=== PATIENT | female | born 1980 | race Caucasian/White ===

== ENCOUNTER 2016-12-05 11:41 | Emergency (ER) | payer OTHER ==
[~2016-12-05] VITALS: Ht 172.7 cm; Wt 139.7 kg
--- NOTE | ~2016-12-05 | CT71 ---
[facility] A Service [facility] RADIOLOGY TEXT RESULTS PATIENT: JON MON LOCATION: GRACE : 78 UNIT #: [id number] AGE: [address]: Larry Zavala MD SEX: F ORDER DR: [id number] [facility] [address] [facility]. [place], [place] [address] [id number] E MR#: [id number] Acc #: [id number] NAME: JON MON : 1980 SEX: F STUDY DATE/TIME: 12/05/2016 14:28 UNIT: [facility] ROOM: STUDY DESCRIPTION: CT Head Wo Contrast Attending Physician: Larry Zavala M.D. Ordering Physician: Larry [id number] Harjinder Zavala Primary Care Physician: Primary Care Physician No MEDICAL IMAGING REPORT This report is preliminary unless electronic signature is present EXAM CT scan of the head without contrast INDICATIONS Seizure, head injury, neck pain, headache since seizure this morning. TECHNIQUE Axial noncontrast images were obtained from the skull base to the vertex. This CT exam was performed with one or more of the following radiation dose reduction techniques: Automatic exposure control, adjustment of mA and/or kV according to patient size, and iterative reconstruction. FINDINGS Ventricular size and configuration are normal. There is no evidence of acute infarct or hemorrhage. There are no extraaxial fluid collections. No mass lesion or mass effect is seen. There are no skull fractures. IMPRESSION Normal noncontrast head CT. Dictated by... Micha Caldwell M.D. THIS IS AN ELECTRONICALLY VERIFIED REPORT Micha Caldwell M.D. at 12/06/2016 7:06 AM FEL/psc TD: 12/05/2016 16:41 JOB #: [id number] MEDICAL IMAGING REPORT [facility] A Service [facility] RADIOLOGY TEXT RESULTS PATIENT: JON MON LOCATION: [facility] : 79 UNIT #: [id number] AGE: [address]: Larry Zavala MD SEX: F ORDER DR: Page 1 of 1 COPY
--- NOTE | ~2016-12-05 | CT52 ---
[facility] A Service [facility] RADIOLOGY TEXT RESULTS PATIENT: JON MON LOCATION: [facility] : [birth year] UNIT #: [id number] AGE: [address]: Larry Zavala MD SEX: F ORDER DR: [id number] [facility] [address] [facility]. [place], [place] [address] [id number] E MR#: [id number] Acc #: [id number] NAME: JON MON : 1980 SEX: F STUDY DATE/TIME: 12/05/2016 14:31 UNIT: [facility] ROOM: STUDY DESCRIPTION: CT Cervical Spine Wo Cont Attending Physician: Larry Zavala M.D. Ordering Physician: Larry [id number] Harjinder Zavala Primary Care Physician: Primary Care Physician No MEDICAL IMAGING REPORT This report is preliminary unless electronic signature is present EXAM Cervical spine CT scan without contrast. INDICATIONS Seizure this morning with trauma to head, and neck pain. TECHNIQUE Axial 2 mm images were obtained through the cervical spine then sagittal and coronal reconstructions were generated. This CT exam was performed with one or more of the following radiation dose reduction techniques: Automatic exposure control, adjustment of mA and/or kV according to patient size, and iterative reconstruction. FINDINGS The vertebral bodies and disc spaces have normal alignment. There is minimal posterior spurring at C5-6. There is no fracture or subluxation. Soft tissues are normal. IMPRESSION Minimal degenerative changes at C5-6, otherwise normal. Dictated by... Micha Caldwell M.D. THIS IS AN ELECTRONICALLY VERIFIED REPORT Micha Caldwell M.D. at 12/06/2016 7:06 AM FEL/psc TD: 12/05/2016 16:44 JOB #: [id number] MEDICAL IMAGING REPORT [facility] A Service [facility] RADIOLOGY TEXT RESULTS PATIENT: JON MON LOCATION: [facility] : 78 UNIT #: [id number] AGE: [address]: Larry Zavala MD SEX: F ORDER DR: Page 1 of 1 COPY
[2016-12-05 12:53] LABS: BASOPHIL# 0.1 X10e3 (0-0.3); BASOPHIL% 0.9 % (0-2.5); EOSINOPHIL# 0.6 X10e3 (0-0.7); EOSINOPHIL% 7.1 % (0.0-7.0); HEMATOCRIT 39.2 % (35.0-45.0); HEMOGLOBIN 12.8 gm/dL (12.0-16.0); LYMPHOCYTE# 2.3 X10e3 (1.0-3.5); LYMPHOCYTE% 28.1 % (17.0-45.0); MEAN CELL VOLUME 89.9 FL (83-96); MEAN CORPUSCULAR HEMOGLOBIN 29.4 PG (28-34); MEAN CORPUSCULAR HGB CONC 32.7 g/dL (30-36); MEAN PLATELET VOLUME 7.7 FL (6.5-11.5); MONOCYTE# 0.4 X10e3 (0-1.0); MONOCYTE% 5.3 % (3.0-12.0); NEUTROPHIL# 4.8 X10e3 (1.5-7.1); NEUTROPHIL% 58.6 % (40-75); PLATELET COUNT 265 X10e3 (140-420); RED BLOOD COUNT 4.36 X10e (3.90-5.30); RED CELL DISTRIBUTION WIDTH 15.2 % (11.0-15.5); WHITE BLOOD COUNT 8.1 X10e3 (4.0-10.5)
[2016-12-05 12:55] LABS: DIFF IND NO
[2016-12-05 13:21] LABS: ALBUMIN SERUM 3.9 g/dL (3.5-5.0); BILIRUBIN, DIRECT 0.1 mg/dL (0.0-0.2); BILIRUBIN,INDIRECT 0.4 mg/dL (0.0-0.9); BILIRUBIN,TOTAL 0.5 mg/dL (0.2-2.0); BUN/CREATININE RATIO 15.71; CALCIUM SERUM 9.2 mg/dL (8.4-10.2); CREATININE SERUM 0.7 mg/dL (0.6-1.4); GLOM FILT RATE Estimated 110.7 mL/min (>60); PROTEIN TOTAL SERUM 7.2 g/dL (6.0-8.3); TEGRETOL (CARBAMAZEPINE) 5.5 ug/mL (4.0-12.0)
[2016-12-05 13:59] LABS: URINE SOURCE CLEAN CATCH
[2016-12-05 14:04] LABS: URINE APPEARANCE CLEAR; URINE BILIRUBIN NEG (NEG); URINE BLOOD NEG (NEG); URINE COLOR YELLOW; URINE GLUCOSE NEG (NEG); URINE KETONE NEG (NEG); URINE LEUKOCYTE ESTERASE NEG (NEG); URINE NITRATE NEG (NEG); URINE PROTEIN NEG (NEG); URINE SPECIFIC GRAVITY 1.009 (1.003-1.035); URINE UROBILINOGEN 0.2 MG/DL (NEG)
[2016-12-05 14:10] LABS: CULTURE INDICATED? NO
[2016-12-05 14:14] LABS: AMPHETAMINE NEG (NEG); BARBITURATES NEG (NEG); BENZODIAZEPINES NEG (NEG); COCAINE NEG (NEG); MARIJUANA NEG (NEG); OPIATES NEG (NEG); TRICYCLIC ANTIDEPRESSANTS NEG (NEG); U METHADONE NEG (NEG)
== END 2016-12-05 16:30 | disposition home or self-care (01) ==
LOC: CED 11:41
PROVIDERS: Emergency Medicine
DX: R56.9 Unspecified convulsions (principal); Z88.5 Allergy status to narcotic agent; Z88.8 Allergy status to other drugs, medicaments and biological substances
CPT/HCPCS: 36415; 70450; 72125; 80048; 80076; 80156; 80307; 81003; 82947; 85025; 96365; 99285; J2060; Q2009

== ENCOUNTER 2016-12-18 15:02 | Inpatient (IN) | payer OTHER ==
[~2016-12-18] VITALS: Ht 172.7 cm; Wt 139.7 kg
--- NOTE | ~2016-12-18 | PN ---
Unit #: [id number] #: [id number] Patient: RENEE MON [id number] [facility] [address] [place] [address] [id number] I MR#: [id number] NAME: RENEE MON ROOM: P251 Age: 36 Sex: F Admission Date: 12/18/2016 : 1980 Attending Physician: Ash Cagle M.D. Admitting Physician: Ash Cagle M.D. Primary Care Physician: Primary Care Physician Kallie PIZANO PROGRESS NOTES DATE 12/24/2016 DISCUSSION Renee continues to complain of ear pain, although it turns out that the object in her ear yesterday was toilet paper that she had deliberately inserted there. She appears quite somatically focused and mildly disheveled this morning. Her mood is depressed with a congruent affect. She is alert and fully oriented with no active psychosis but ongoing suicidal ideation. ASSESSMENT Posttraumatic stress disorder, chronic. PLAN Continue current treatment plan. Dictated by... Gokul Wen/beena TD: 12/25/2016 08:39 JOB #: [id number] [facility] PROGRESS NOTES Page 1 of 1 X Ash Cagle MD X PROGRESS NOTE
--- NOTE | ~2016-12-18 | PN ---
Unit #: [id number] #: [id number] Patient: RENEE MON [id number] [facility] [address] [place] [address] [id number] I MR#: [id number] NAME: RENEE MON ROOM: P251 Age: 36 Sex: F Admission Date: 12/18/2016 : 1980 Attending Physician: Ash Cagle M.D. Admitting Physician: Ash Cagle M.D. Primary Care Physician: Primary Care Physician Kallie PIZANO PROGRESS NOTES DATE 12/20/2016 DISCUSSION Renee has tolerated the change of medication from Effexor to Cymbalta with no significant adverse side effects. She continues to be dysphoric and downcast in her mood and occasionally tearful. She has had a couple episodes of seizure-like activity. She is alert and fully oriented with no active psychosis and ongoing suicidal ideation. ASSESSMENT Posttraumatic stress disorder, chronic. PLAN We will check a Tegretol level and continue with current medications and precautions. Dictated by... Gokul Wen/beena TD: 12/25/2016 11:43 JOB #: [id number] [facility] PROGRESS NOTES Page 1 of 1 X Ash Cagle MD PROGRESS NOTE
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
--- NOTE | ~2016-12-18 | HP ---
Unit #: [id number] #: [id number] Patient: JON MON [id number] [place] [address] [id number] I MR#: [id number] NAME: JON MON ROOM: P255 Age: 36 Sex: F Admission Date: 12/18/2016 : 1980 Attending Physician: Ash Cagle M.D. Admitting Physician: Ash Cagle M.D. Primary Care Physician: Primary Care Physician No HISTORY AND PHYSICAL HISTORY OF PRESENT ILLNESS Patient is a 36-year-old female admitted to [address] [place] [address] on 12/18/2016 for suicidal ideations with an attempt to kill herself by slitting her wrist. PAST MEDICAL HISTORY 1. AFib. 2. Seizure disorder. 3. Restless leg. 4. Hypothyroidism. 5. Right ankle pain and swelling. 6. Migraines. PAST SURGICAL HISTORY 1. Hysterectomy. 2. Heart ablation. 3. Appendectomy. 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 She lives with her and her children. She denies alcohol, tobacco and drug use. FAMILY MEDICAL HISTORY Noncontributory. ALLERGIES Scopolamine, Dilaudid, Zofran, Toradol and latex. CURRENT MEDICATIONS Please see list of home medications per chart. REVIEW OF SYSTEMS CONSTITUTIONAL: No fever or chills. HEENT: Denies any sore throat, ear pain or runny nose. CARDIOVASCULAR: Denies chest pain, irregular heart rhythm or palpitations. CHEST: Denies shortness of breath or cough. No hemoptysis. GASTROINTESTINAL: Denies nausea, vomiting, diarrhea or chronic constipation. ENDOCRINE: Denies history of increased thirst or urination. No recent significant weight loss or gain. GENITOURINARY: She complains of vaginal itching and discharge. SKIN: Denies any rashes. HEMATOLOGIC: Denies history of increased bleeding or bruising. MUSCULOSKELETAL: She complains of right ankle pain. Unit #: [id number] #: [id number] Patient: JON MON NEUROLOGIC: Denies problems with vision or speech. No frequent, severe headaches. No numbness, tingling or weakness in any extremities. Denies loss of bladder or bowel control. PHYSICAL EXAM GENERAL: She is obese, awake, alert and oriented in no acute distress. VITAL SIGNS: Temperature 98.9, heart rate 91, respiration 20, blood pressure 129/89. HEIGHT: 5 foot 8. WEIGHT: 308 pounds. SKIN: Warm and dry without rash or lesion. HEENT: Normocephalic. TMs not viewed. Oral and nasal passages clear. Conjunctivae clear. PERRLA. EOMs intact. NECK: Supple without lymphadenopathy or thyromegaly. HEART: Regular rate and rhythm without murmur. LUNGS: Clear. ABDOMEN: Soft, nontender. : Not done. MUSCULOSKELETAL: She has some mild right ankle swelling with tenderness to palpation and decrease range of motion. NEUROLOGICAL: Grossly within normal limits. Cranial Nerves: II: Visual nguyen are intact. III, IV AND : Extraocular movements are intact. Pupils are equal, round and reactive to light. V: Facial sensation is grossly normal. VII: Facial movements and expression are normal. VIII: Auditory acuity grossly intact. IX, X: Uvula is midline. Phonation is normal. XI: Patient shrugs shoulders and turns head normally. XII: Tongue protrudes in the midline. Sensory and Motor Function: Sensory and motor sensation is grossly normal. Motor: moves all extremities well. IMPRESSION 1. Psychiatric admission. 2. Atrial fibrillation. 3. Seizure disorder. 4. Restless leg syndrome. 5. Hypothyroidism. 6. Right ankle pain and swelling. 7. Migraines. RECOMMENDATIONS Psychiatric per psychiatrist. MEDICAL: No contraindication to participate in facility activities. MEDICAL PROGNOSIS Fair. MEDICAL CONDITION Stable. Dictated by... Mitali Colmenares A.P.R.N. Unit #: [id number] #: [id number] Patient: JON MON LOVE/tl TD: 12/20/2016 02:31 JOB #: [id number] HISTORY AND PHYSICAL Page 1 of 1 X MITALI COLMENARES APRN HISTORY AND PHYSICAL
--- NOTE | ~2016-12-18 | PN ---
Unit #: [id number] #: [id number] Patient: RENEE MON [id number] [facility] [address] [place] [address] [id number] I MR#: [id number] NAME: RENEE MON ROOM: [facility] Age: 36 Sex: F Admission Date: 12/18/2016 : 1980 Attending Physician: Ash Cagle M.D. Admitting Physician: Ash Cagle M.D. Primary Care Physician: Primary Care Physician Kallie SOTELO NOTES DATE 12/23/2016 DISCUSSION Renee had another seizure-like episode last night, which was apparently not witnessed by staff as the patient had moved to a corner of her room where she could not be observed on the video monitoring system. She complains of ongoing depression this morning with a congruent affect. She is alert and fully oriented. Her memory and concentration are fair. Her thought processes are illogical with vague auditory hallucinations and ongoing suicidal ideation. ASSESSMENT PTSD, borderline personality traits. PLAN We will check a Tegretol level and CMP in the morning and continue video monitoring and introduction of current medications. Dictated by... Gokul Wen/galdino TD: 12/24/2016 07:25 JOB #: [id number] [facility] PROGRESS NOTES Page 1 of 1 X Ash Cagle MD PROGRESS NOTE
--- NOTE | ~2016-12-18 | PN ---
Unit #: [id number] #: [id number] Patient: RENEE MON [id number] [facility] [address] [place] [address] [id number] I MR#: [id number] NAME: RENEE MON ROOM: P251 Age: 36 Sex: F Admission Date: 12/18/2016 : 1980 Attending Physician: Ash Cagle M.D. Admitting Physician: Ash Cagle M.D. Primary Care Physician: Primary Care Physician Kallie PIZANO PROGRESS NOTES DATE 12/21/2016 DISCUSSION Renee continues to complain of some sleepiness and has ongoing seizure-like activity, some of which seems somewhat "gamey" in nature. She continues to be depressed with a congruent affect. She is alert and fully oriented with no active psychosis. She does continue to report suicidal ideation. ASSESSMENT PTSD, chronic. PLAN We will change schedule of Geodon to avoid sedation and check laboratory studies. Will also continue with medical interventions as appropriate. Dictated by... Gokul Wen/laura TD: 12/25/2016 17:23 JOB #: [id number] [facility] PROGRESS NOTES Page 1 of 1 X Ash Cagle MD X PROGRESS NOTE
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
--- NOTE | ~2016-12-18 | PN ---
Unit #: [id number] #: [id number] Patient: RENEE MON [id number] [facility] [address] [place] [address] [id number] I MR#: [id number] NAME: RENEE MON ROOM: P251 Age: 36 Sex: F Admission Date: 12/18/2016 : 1980 Attending Physician: Ash Cagle M.D. Admitting Physician: Ash Cagle M.D. Primary Care Physician: Primary Care Physician Kallie PIZANO PROGRESS NOTES DATE 12/28/2016 DISCUSSION Renee continues to have occasional episodes of pseudoseizure-like activity, crying spells and anxiety. She is alert and fully oriented. Memory and concentration are fair. She continues to remain on suicidal ideation. She is participating in groups and activities. ASSESSMENT PTSD, chronic. PLAN Continue current treatment plan. Dictated by... Gokul Wen/dillon TD: 01/05/2017 15:16 JOB #: [id number] [facility] PROGRESS NOTES Page 1 of 1 X Ash Cagel MD X PROGRESS NOTE
--- NOTE | ~2016-12-18 | CO ---
Unit #: [id number] #: [id number] Patient: RENEE MON [id number] [place] [address] [id number] I MR#: [id number] NAME: RENEE MON ROOM: P251 Age: 36 Sex: F Admission Date: 12/18/2016 : 1980 Attending Physician: Ash Cagle M.D. Primary Care Physician: Primary Care Physician No Consultation Date: 12/22/2016 CONSULTATION REPORT SUBJECTIVE Renee is a 36-year-old, who has complained of left ear pain since her admission. After speaking with nursing staff, she had been given a set of soft foam ear plugs that she had brought in. She only has one soft foam ear plugs at the bathroom sink at this time. OBJECTIVE GENERAL: Alert, obese, no apparent distress. VITAL SIGNS: Blood pressure 120/70, heart rate 80, respirations 16, temperature 98.6. HEENT: Normocephalic. Left ear canal with yellow foreign body. Right ear canal is clear and TM is intact. With a pair of forceps, I was able to easily remove a yellow foam ear plug from her left ear canal. TM is intact. ASSESSMENT Occluded left ear canal with earplug. PLAN This was reported to nursing medical supervisor in the hopes that we will not be giving these out to patients in the future. No Rx is needed in this case. Dictated by... Susanne Agudelo P.A.-C. for Gokul Azevedo/eliud TD: 12/26/2016 03:29 JOB #: [id number] CONSULTATION REPORT Page 1 of 1 X Susanne Agudelo CONSULTATION REPORT
--- NOTE | ~2016-12-18 | CO ---
Unit #: [id number] #: [id number] Patient: JON MON [id number] [facility] [address] [place] [address] [id number] I MR#: [id number] NAME: JON MON ROOM: [facility] Age: 36 Sex: F Admission Date: 12/18/2016 : 1980 Attending Physician: Ash Cagle M.D. Primary Care Physician: Primary Care Physician No Consultation Date: 12/19/2016 CONSULTATION REPORT Ordering provider is Dr. Cagle. REASON FOR CONSULTATION Right ankle pain and yeast infection. SUBJECTIVE The patient reports that she fractured her right ankle in August. She is following up with Orthopedics, but she is supposed to be wearing a brace. In the meantime, she needs an order to wear this brace while she is in the hospital. She has still been getting physical therapy twice daily. She reports swelling and tenderness. She also reports that she has been having vaginal itching and dysuria for about 3 days. She used one day of Monistat at home, but did not finish the course due to coming to the hospital. OBJECTIVE Vaginal examination was deferred at this time. Her right ankle does appear to be swollen and tender to palpate. She does report pain with range of motion as well. ASSESSMENT 1. Right ankle fracture. 2. Yeast infection. PLAN Plan is to prescribe Monistat 7 and have her wear her brace while she is up walking. Dictated by... Carl Mcbride/eliud TD: 12/20/2016 17:18 JOB #: [id number] Unit #: [id number] #: [id number] Patient: JON MON CONSULTATION REPORT Page 1 of 1 X AURA HAYS APRN CONSULTATION REPORT
--- NOTE | ~2016-12-18 | CO ---
Unit #: [id number] #: [id number] Patient: JON MON [id number] [place] [address] [id number] I MR#: [id number] NAME: JON MON ROOM: [facility] Age: 36 Sex: F Admission Date: 12/18/2016 : 1980 Attending Physician: Ash Cagle M.D. Consultation Date: 12/20/2016 CONSULTATION REPORT REASON FOR CONSULTATION UTI. SUBJECTIVE The patient was seen on 12/19/2016 and did complain of dysuria. However, she believes it was related to yeast infection that she was having symptoms of that as well. She had denied any abdominal or back pain. OBJECTIVE Urinalysis shows 2+ leukocyte esterase and bacteria present in her urine. ASSESSMENT Urinary tract infection. PLAN Because the patient did have symptoms of dysuria, we will go ahead and treat with Macrobid and get a urine culture. Dictated by... Carl Mcbride/eliud TD: 12/21/2016 13:06 JOB #: [id number] CONSULTATION REPORT Page 1 of 1 X AURA HAYS APRN CONSULTATION REPORT
--- NOTE | ~2016-12-18 | PN ---
Unit #: [id number] #: [id number] Patient: RENEE MON [id number] [facility] [address] [place] [address] [id number] I MR#: [id number] NAME: RENEE MON ROOM: P251 Age: 36 Sex: F Admission Date: 12/18/2016 : 1980 Attending Physician: Ash Cagle M.D. Admitting Physician: Ash Cagle M.D. Primary Care Physician: Primary Care Physician Kallie PIZANO PROGRESS NOTES DATE 12/25/2016 DISCUSSION Renee reports that she is still having suicidal thoughts but did start to feel better yesterday, she is a little worse today and reports "my tremors are so bad" even though no tremors in her extremities are notable during my examination. She claims that the tremors lead to a recent fall which she felt embarrassed about. She also complains of "spots in front of my eyes," and other physical complaints. She is alert and fully oriented with fair memory and concentration and her thought processes are logical but highly somatically focused. She continues to report suicidal ideation. ASSESSMENT PTSD, chronic. PLAN We will continue current treatment plan. Dictated by... Gokul Wen/galdino TD: 12/27/2016 09:05 JOB #: [id number] [facility] PROGRESS NOTES Page 1 of 1 X Ash Cagle MD X PROGRESS NOTE
--- NOTE | ~2016-12-18 | PN ---
Unit #: [id number] #: [id number] Patient: RENEE MON [id number] [facility] [address] [place] [address] [id number] MR#: [id number] NAME: RENEE MON ROOM: P251 Age: 36 Sex: F Admission Date: 12/18/2016 : 1980 Attending Physician: Ash Cagle M.D. Admitting Physician: Ash Cagle M.D. Primary Care Physician: Primary Care Physician Kallie PIZANO PROGRESS NOTES DATE 12/27/2016 DISCUSSION Renee has developed several "side effects" that she complains of including a non-visible tremor and "spots in my eyes" which do not appear related to her medication. She also has a reddish rash across her chest and her underarm, although there is no petechia or raised areas and this appears to be a dermatitis. 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 Her mood is depressed with a congruent affect. She is alert and fully oriented with no active psychosis but ongoing suicidal ideation with a plan to cut her wrist. ASSESSMENT PTSD, chronic. PLAN At the patient's request, I am going to discontinue Cymbalta and will substitute Fetzima beginning at 20 mg daily. She will continue on her current precaution levels. The patient is an active participant in psychotherapy groups and activities and she was encouraged to continue to do so. Dictated by... Gokul Wen/laura TD: 12/28/2016 22:58 JOB #: [id number] Unit #: [id number] #: [id number] Patient: RENEE MON PROGRESS NOTES Page 1 of 1 X Ash Cagle MD X PROGRESS NOTE
--- NOTE | ~2016-12-18 | PN ---
Unit #: [id number] #: [id number] Patient: RENEE MON [id number] [facility] [address] [place] [address] [id number] MR#: [id number] NAME: RENEE MON ROOM: P251 Age: 36 Sex: F Admission Date: 12/18/2016 : 1980 Attending Physician: Ash Cagle M.D. Admitting Physician: Ash Cagle M.D. Primary Care Physician: Primary Care Physician Kallie SOTELO NOTES DATE 12/22/2016 DISCUSSION Renee complaints of significant stoppage and mild pain in her left ear, and requests a medical consultation. She also continues to have seizure-like episodes although these are typically witnessed by staff and have no postictal confusion or disorientation. Her mood remains depressed and labile with a congruent affect. She is alert and fully oriented. Her memory and concentration are fair. And thought processes continue to report some paranoia or auditory hallucinations. She continues to report suicidal ideation. ASSESSMENT PTSD, chronic. PLAN I will obtain a medical consultation for her ear pain and continue current treatment plan, otherwise. Dictated by... Gokul Wen/galdino TD: 12/24/2016 11:04 JOB #: [id number] HARINDER SOTELO NOTES Page 1 of 1 X Ash Cagle MD PROGRESS NOTE
[2016-12-19 11:30] LABS: URINE APPEARANCE CLOUDY; URINE BILIRUBIN NEG (NEG); URINE BLOOD NEG (NEG); URINE COLOR YELLOW; URINE GLUCOSE NEG (NEG); URINE KETONE NEG (NEG); URINE LEUKOCYTE ESTERASE 2+ (NEG); URINE NITRATE NEG (NEG); URINE PROTEIN NEG (NEG); URINE SPECIFIC GRAVITY 1.011 (1.003-1.035); URINE UROBILINOGEN 0.2 MG/DL (NEG)
[2016-12-19 11:34] LABS: URINE BACTERIA AUWI 3+ (NEGATIVE); URINE SQUAMOUS EPITHELIAL CELL MOD /[HPF]; UWBCS1 AUWI 25-50 (0-5)
[2016-12-19 11:42] LABS: URINE MUCUS PRESENT
[2016-12-19 11:53] LABS: AMPHETAMINE NEG (NEG); BARBITURATES NEG (NEG); BENZODIAZEPINES NEG (NEG); COCAINE NEG (NEG); MARIJUANA NEG (NEG); OPIATES NEG (NEG); TRICYCLIC ANTIDEPRESSANTS POS (NEG); U METHADONE NEG (NEG)
[2016-12-20 12:59] LABS: BASOPHIL# 0.1 X10e3 (0-0.3); BASOPHIL% 0.8 % (0-2.5); EOSINOPHIL# 0.4 X10e3 (0-0.7); EOSINOPHIL% 6.2 % (0.0-7.0); HEMATOCRIT 36.4 % (35.0-45.0); HEMOGLOBIN 11.8 gm/dL (12.0-16.0); LYMPHOCYTE% 42.4 % (17.0-45.0); MEAN CELL VOLUME 90.5 FL (83-96); MEAN CORPUSCULAR HEMOGLOBIN 29.3 PG (28-34); MEAN CORPUSCULAR HGB CONC 32.4 g/dL (30-36); MONOCYTE# 0.3 X10e3 (0-1.0); MONOCYTE% 4.9 % (3.0-12.0); NEUTROPHIL# 3.2 X10e3 (1.5-7.1); NEUTROPHIL% 45.7 % (40-75); PLATELET COUNT 260 X10e3 (140-420); RED BLOOD COUNT 4.02 X10e (3.90-5.30); RED CELL DISTRIBUTION WIDTH 15.1 % (11.0-15.5); WHITE BLOOD COUNT 7.1 X10e3 (4.0-10.5)
[2016-12-20 13:19] LABS: ALBUMIN SERUM 3.4 g/dL (3.5-5.0); BILIRUBIN,TOTAL 0.4 mg/dL (0.2-2.0); BUN/CREATININE RATIO 12.5; CALCIUM SERUM 8.8 mg/dL (8.4-10.2); CREATININE SERUM 0.8 mg/dL (0.6-1.4); GLOM FILT RATE Estimated 94.3 mL/min (>60); POTASSIUM 3.7 mmol/L (3.5-5.1); PROTEIN TOTAL SERUM 6.3 g/dL (6.0-8.3)
[2016-12-20 13:20] LABS: DIFF IND NO
[2016-12-24 09:50] LABS: ALBUMIN SERUM 3.9 g/dL (3.5-5.0); BILIRUBIN,TOTAL 0.5 mg/dL (0.2-2.0); CALCIUM SERUM 9.4 mg/dL (8.4-10.2); CREATININE SERUM 0.8 mg/dL (0.6-1.4); GLOM FILT RATE Estimated 94.3 mL/min (>60); POTASSIUM 4.3 mmol/L (3.5-5.1); PROTEIN TOTAL SERUM 6.8 g/dL (6.0-8.3); TEGRETOL (CARBAMAZEPINE) 6.8 ug/mL (4.0-12.0)
== END 2016-12-31 15:10 | disposition home or self-care (01) | DRG 882 ==
LOC: P2L 19:10
PROVIDERS: Psychiatry & Neurology Psychiatry
DX: F43.12 Post-traumatic stress disorder, chronic (principal); I48.91 Unspecified atrial fibrillation; R45.851 Suicidal ideations; I10 Essential (primary) hypertension; B37.9 Candidiasis, unspecified; G25.81 Restless legs syndrome; N39.0 Urinary tract infection, site not specified; E03.9 Hypothyroidism, unspecified; E66.9 Obesity, unspecified; F60.3 Borderline personality disorder; G89.29 Other chronic pain; Z90.710 Acquired absence of both cervix and uterus; Z91.040 Latex allergy status; S82.891D Other fracture of right lower leg, subsequent encounter for closed fracture with routine healing; T16.2XXA Foreign body in left ear, initial encounter
CPT/HCPCS: 80053; 80156; 80178; 80307; 81003; 85025; 87086; 87088